=== PATIENT | female | born 1940 | race Caucasian/White ===

== ENCOUNTER 2019-07-12 15:25 | Outpatient (RCR) | payer MEDICARE, MEDICAID, SELFPAY | END 2019-07-27 00:01 | LOC: LAB 15:25 | PROVIDERS: Family Provider Family Medicine; Visit Provider Family Medicine | DX: G35 Multiple sclerosis (principal) | CPT/HCPCS: 85025; 86140 ==

== ENCOUNTER 2020-06-07 14:00 | Emergency (ER) | payer MEDICARE, MEDICAID, SELFPAY ==
--- NOTE | 2020-06-07 14:08 | ECG_ITS ---
[facility] Test Date: 2020-06-07 Pat Name: Elicia Davison Department: Room: Gender: Female Commercial Property Manager: : 1940 Requested By: Leonard Natarajan Order Number: [id number] Carlos MD: Manas Ocampo M.D. Measurements Intervals [place] Rate: 69 P: 65 WI: 222 QRS: 15 QRSD: 85 T: 58 QT: 430 QTc: 463 Interpretive Statements SINUS RHYTHM WITH FIRST DEGREE AV BLOCK Compared to ECG 12/03/2018 02:51:22 Sinus tachycardia no longer present Electronically Signed On 06-07-2020 16:07:21 MANAGER FINANCIAL REPORTING by Manas Ocampo M.D. [id number]
--- NOTE | 2020-06-07 14:12 | XR_ITS ---
WS: [id number] Portable AP upright chest, 06/07/2020 Clinical Data: covid Comparison: Portable chest, 12/27/2018. Findings: There is minimal patchy opacity in the left lower lobe. The upper lobes are clear as is the right low er lobe. The heart is normal. The aortic arch and descending aorta show calcified dictation and mild tortuosity. No nodules, masses or effusions are seen. There are monitor leads on the chest wall. XR/XR chest 1V portable [id number] IMPRESSION: 1. Minimal patchy opacity in left lower lobe which could represent acute pneumo darrell and/or atelectasis. 2. Atherosclerosis.
[2020-06-07 14:17] VITALS: BP 100/38; PULSE 64; RESP 16; TEMP 36.5; O2SAT 96; BMI 31.6
[2020-06-07] MEDS: sodium chloride 0.9% 1,000 ML 999 ML IV ×2 (14:20→15:37)
--- NOTE | 2020-06-07 14:20 | ED_ITS ---
HPI - Syncope General: Chief Complaint: COVID symptoms Stated Complaint: SYNCOPE Time Seen by Provider: 06/07/20 14:08 Source: patient Mode of arrival: ambulatory Limitations: physical limitation History of Present Illness: HPI narrative: 79-year-old female who tested positive for Covid 5 days ago. Per retirement she has had decreased oral intake and states she had a syncopal event this morning. Patient was hypotensive but blood pressure is better after 500 mL by EMS. She denies any shortness of breath. States she just felt weak over the last roughly 2 weeks. Denies any fevers. Denies any vomiting or diarrhea. Denies any worsening or improving factors. Associated symptoms: Deny abdominal pain, chest pain, fever(s), headache(s) or nausea Review of Systems Const: Denies: fever(s), chills, body aches or change in appetite Eyes: Denies: blurry vision or eye discomfort ENMT: Denies: throat pain or dental pain Card: Reports: syncope; Denies: chest pain Resp: Denies: dyspnea GI: Denies: abdominal pain, nausea, vomiting or diarrhea : Denies: dysuria Musc: Denies: neck pain or back pain Skin/Breast: Denies: rash Neuro: Denies: headache(s) Psych: Denies: depression Sam/Lymph: Denies: easy bruising All/Imm: Denies: urticaria Physical Exam Const: COMMON NORMALS: no acute distress, patient oriented x3 and healthy appearing HENMT: COMMON NORMALS: normocephalic and atraumatic HEAD & SCALP: normocephalic and atraumatic Eye: COMMON NORMALS: Equal, round and reactive pupils present and EOMs intact bilaterally PUPIL: Yes Equal, round and reactive pupils present Neck/C-Spine: COMMON NORMALS: full ROM and supple Chest: COMMONS NORMALS: normal inspection of the chest and normal palpation of entire chest wall Resp: COMMON NORMALS: normal respiratory effort, No retractions, No use of accessory muscles and clear to auscultation bilaterally AUSCULTATION: clear to auscultation bilaterally Cardio: COMMON NORMALS: regular rate, regular rhythm and No murmurs present (Cardio) RATE: regular rate RHYTHM: regular rhythm GI: COMMON NORMALS: Normal to inspection, nondistended, normoactive bowel sounds present, Soft to palpation, non-tender and no masses PALPATION: Yes Soft to palpation Extremity: COMMON NORMALS: normal to inspection and full ROM Neuro: COMMON NORMALS: patient oriented x3, moves all extremities and no focal motor deficits Psych: COMMON NORMALS: mental status grossly normal, Normal thought process present and cooperative THOUGHT PROCESS: Normal thought process present Skin: COMMON NORMALS: no rashes or lesions noted and no wounds GENERAL SKIN EXAM: no rashes or lesions noted Course Vital Signs: Vital signs: Vital Signs Temperature 97.7 F 06/07/20 14:17 Pulse Rate 67 06/07/20 16:56 Respiratory Rate 18 06/07/20 16:56 Blood Pressure 135/54 06/07/20 16:56 Pulse Oximetry 93 06/07/20 16:56 MDM - Syncope MDM Narrative: Medical decision making narrative: Patient presents here with general weakness along with Covid. X-ray shows a possible left lower lobe pneumonia and will start her on doxycycline. Patient is well-appearing here and vital signs are all normal. She has no dyspnea. We will give her Decadron and prescribe her meds for home and feels she is stable for discharge back to the retirement. She is to return if worsening. Lab Data: Labs: Lab Results 06/07/20 06/07/20 06/07/20 Range/Units 14:45 14:45 14:45 WBC 4.2 (4.0-10.0) 10^3/ uL RBC 3.32 L (4.1-5.3) 10^6/u L Hgb 10.9 L (11.5-15.3) g/dL Hct 35.3 L (37.0-47.0) % MCV 106.3 H (81-99) fL MCH 32.8 (28.0-34.0) pg MCHC 30.9 (30.0-36.0) g/dL RDW 13.8 (12.1-15.1) % Plt Count 260 (130-400) 10^3/c mm MPV 9.7 (7.4-10.4) fL Neut % (Auto) 63.2 % Lymph % (Auto) 26.7 % [place] % (Auto) 9.2 % Eos % (Auto) 0.2 % Baso % (Auto) 0.2 % Neut # (Auto) 2.62 (1.8-7.7) 10^3/u L Lymph # (Auto) 1.1 (0.8-4.8) 10^3/u L [place] # (Auto) 0.4 (0.2-0.9) 10^3/u L Eos # (Auto) 0.0 (0.0-0.8) 10^3/u L Baso # (Auto) 0.0 (0.0-0.1) 10^3/u L Nucleated RBC % (a uto) 0 % Nucleated RBCs # 0.0 /100WBC Sodium 137 (136-145) mmol/L Potassium 3.7 (3.5-5.1) mmol/L Chloride 101 (98-107) mmol/L Carbon Dioxide 26 (22-29) mmol/L Anion Gap 13.7 (5-19) BUN 12 (8-23) mg/dL Creatinine 0.9 (0.5-0.9) mg/dL GFR Calculation Not Reportable Glucose 139 H (65-115) mg/dL Calculated Osmolal ity 286 (285-295) mOsm/k g Lactate 2.6 H (0.5-2.2) mmol/L Calcium 8.8 (8.5-10.5) mg/dL Total Bilirubin 0.2 (0.15-1.2) mg/dL AST 15 (0-32) U/L ALT 7 (0-33) U/L Alkaline Phosphata se 138 H (35-105) IU/L Total Protein 6.9 (6.6-8.7) g/dL Albumin 3.1 L (3.5-5.2) g/dL Globulin 3.8 (1.3-4.6) g/dL Imaging Data^: CXR: Attestation: I personally reviewed and interpreted this imaging study as follows: Radiologist's impression: [address] [address] XRay Report Signed Patient: Elicia Davison Unit #: [id number] : 1940 Age/Sex: 79 / F ADM Date: 06/07/20 Loc: ER Room/Bed: Attending Dr: Ordering Provider/Ordering MD: Leonard Natarajan MD Date of Service: 06/07/20 Procedure(s): XR chest 1V portable [id number] Accession Number(s): [id number] Report Number: [id number] WS: [id number] Portable AP upright chest, 06/07/2020 Clinical Data: covid Comparison: Portable chest, 12/27/2018. Findings: There is minimal patchy opacity in the left lower lobe. The upper lobes are clear as is the right lower lobe. The heart is normal. The aortic arch and descending aorta show calcified dictation and mild tortuosity. No nodules, masses or effusions are seen. There are monitor leads on the chest wall. XR/XR chest 1V portable [id number] IMPRESSION: 1. Minimal patchy opacity in left lower lobe which could represent acute pn eumonia and/or atelectasis. 2. Atherosclerosis. EKG Data^: EKG 1: Attestation: I personally reviewed and interpreted this EKG as follows: EKG interpretation date: 06/07/20 EKG interpretation time: 15:16 Interpretation: nsr hr [address] or t wave abnormalities qrs 89 qtc 449 Discharge Plan Discharge Patient Disposition: Home Clinical Impression: Pneumonia due to 2019 novel coronavirus Condition: Stable Prescriptions: New doxycycline hyclate 100 mg capsule 100 mg PO BID 10 Days Qty: 20 RF: 0 No Action gabapentin 600 mg Tablet 600 mg PO QID RF: 0 tizanidine 2 mg Tablet 2 mg PO TID PRN (Reason: Muscle Spasm) RF: 0 aspirin 325 mg Tablet 325 mg PO DAILY RF: 0 pravastatin 40 mg Tablet 40 mg PO DAILY RF: 0 [place] 5-325 mg Tablet 1 tab PO Q4H PRN (Reason: Pain) RF: 0 [place] 5-325 mg Tablet 1 tab PO BID RF: 0 Senna-S 8.6-50 mg Tablet 1 tab PO BID RF: 0 calcium carbonate-vitamin D3 [Calcium 600 + D(3)] 600 mg(1,500mg) -200 unit Tablet 2 tab PO DAILY RF: 0 levothyroxine 75 mcg Tablet 75 mcg PO DAILY RF: 0 nortriptyline 25 mg Capsule 25 mg PO DAILY RF: 0 carbamazepine 200 mg Tablet Extended Release 12 Hr 400 mg PO BID RF: 0 baclofen 10 mg Tablet 10 mg PO TID RF: 0 metoprolol tartrate 50 mg Tablet 50 mg PO BID RF: 0 oxybutynin chloride 5 mg Tablet 5 mg PO BID RF: 0 Ocuvite Tablet 1 tab PO DAILY RF: 0 TwoCal HN 0.08-2 gram-kcal/mL Liquid 1 ea PO TID RF: 0 Betaseron 0.3 mg kit 0.25 mg SUBCUT .EVERY TWO DAYS RF: 0 Tylenol 325 mg Tablet 650 mg PO Q6H PRN (Reason: Pain) RF: 0 Miralax 17 gram Powder In Packet 17 g PO DAILY PRN (Reason: Constipation) RF: 0 loperamide 2 mg Tablet 2 mg PO Q8H PRN (Reason: LOOSE STOOLS) RF: 0 Xanax 0.5 mg Tablet 0.5 mg PO BID PRN (Reason: UNKNOWN) RF: 0 Xanax 0.25 mg Tablet 0.25 mg PO BID PRN (Reason: Anxiety) RF: 0 Milk of Magnesia 400 mg/5 mL Suspension 30 ml PO DAILY PRN (Reason: Constipation) RF: 0 bisacodyl 10 mg Suppository 10 mg OK DAILY PRN (Reason: Constipation) RF: 0 Vitamin B-12 1,000 mcg/mL Solution 1,000 mcg IM Q30D RF: 0 ibuprofen 400 mg Tablet 400 mg PO Q8H PRN (Reason: Pain) RF: 0 Enema Disposable 19-7 gram/118 mL Enema 118 ml OK DAILY PRN (Reason: Constipation) RF: 0 Biofreeze (menthol) 4 % Gel See Rx Instructions .ROUTE .COMPLEX RF: 0 Discharge Orders: Discharge Order (Routine); Ordered 06/07/20 Ordered By: Leonard Natarajan Discharge Diet: Advance as tolerated Discharge Activity: Resume usual activity Patient Instructions: Pneumonia (ED) Coding Level of Care Code ED Online Merchandising Specialist for Chg Fwd Exam Comprehensive
[2020-06-07 14:25] VITALS: BP 106/42; PULSE 68; RESP 16; O2SAT 97
[2020-06-07 14:49] VITALS: O2SAT 97
[2020-06-07 14:50] VITALS: BP 106/42; PULSE 70; RESP 16; O2SAT 97
[2020-06-07 15:06] LABS: Basophils % 0.2 %; Eosinophils % 0.2 %; Hematocrit 35.3 % (37.0-47.0); Hemoglobin 10.9 g/dL (11.5-15.3); Lymphocytes # 1.1 10^3/uL (0.8-4.8); Lymphocytes % 26.7 %; Mean Corpuscular HGB Conc 30.9 g/dL (30.0-36.0); Mean Corpuscular Hemoglobin 32.8 pg (28.0-34.0); Mean Corpuscular Volume 106.3 fL (81-99); Mean Platelet Volume 9.7 fL (7.4-10.4); Monocytes # 0.4 10^3/uL (0.2-0.9); Monocytes % 9.2 %; Neutrophils # 2.62 10^3/uL (1.8-7.7); Neutrophils % 63.2 %; Nucleated Red Blood Cells % 0 %; Platelet Count 260 10^3/cmm (130-400); Red Blood Count 3.32 10^6/uL (4.1-5.3); Red Cell Distribution Width 13.8 % (12.1-15.1); White Blood Count 4.2 10^3/uL (4.0-10.0)
[2020-06-07 15:50] LABS: Lactate (Lactic Acid level) 2.6 mmol/L (0.5-2.2)
[2020-06-07 15:51] LABS: Alanine Aminotransferase 7 U/L (0-33); Albumin Level 3.1 g/dL (3.5-5.2); Alkaline Phosphatase 138 IU/L (35-105); Anion Gap 13.7 (5-19); Aspartate Amino Transferase 15 U/L (0-32); Blood Urea Nitrogen 12 mg/dL (8-23); Calcium 8.8 mg/dL (8.5-10.5); Carbon Dioxide 26 mmol/L (22-29); Chloride 101 mmol/L (98-107); Creatinine Clr Calc Pharmacy 56.7508; Globulin 3.8 g/dL (1.3-4.6); Glucose 139 mg/dL (65-115); Osmolality Calculated 286 mOsm/kg (285-295); Potassium 3.7 mmol/L (3.5-5.1); Sodium 137 mmol/L (136-145); Total Bilirubin 0.2 mg/dL (0.15-1.2); Total Protein 6.9 g/dL (6.6-8.7)
--- NOTE | 2020-06-07 16:04 | PC.NURSE ---
Resting with lights off. Informed her, her daughter in law checking on her.
[2020-06-07] MEDS: dexamethasone 4 mg/mL INJ 10 MG IVP (16:28)
[2020-06-07 16:56] VITALS: BP 135/54; PULSE 67; RESP 18; O2SAT 93
[2020-06-07 18:03] VITALS: BP 115/54; PULSE 67; RESP 16; TEMP 37.2; O2SAT 96
== END 2020-06-07 18:18 | disposition home or self-care (01) ==
PROVIDERS: Emergency Provider Emergency Medicine
DX: U07.1 COVID-19 (principal); J12.89 Other viral pneumonia; Z79.82 Long term (current) use of aspirin
CPT/HCPCS: 12345; 71045; 80053; 83605; 85025; 93005; 96361; 96374; 96375; 99283; J1100; J7030

== ENCOUNTER 2020-06-20 12:49 | Emergency (ER) | payer MEDICARE, MEDICAID, SELFPAY ==
[2020-06-20 12:55] VITALS: BP 116/55; PULSE 64; RESP 18; TEMP 36.4; O2SAT 100; BMI 26.9
--- NOTE | 2020-06-20 12:57 | XR_ITS ---
WS: [id number] XR chest 1V portable [id number] REASON FOR EXAM: syncope FINDINGS: The chest is unchanged compared to 06/07/2020. The heart and mediastinum are within normal limits for age. There are interstitial changes in both lungs which are identifiable on the previous examination. They appear somewhat more accentuated and prominent on this examination however this is likely due to dif ference in technique. No other interval change or new finding. XR/XR chest 1V portable [id number] IMPRESSION: Probable stable abnormal chest. Less likely early congestive failure. Clinical correlation to be made.
--- NOTE | 2020-06-20 13:06 | CT_ITS ---
WS: [id number] CT head wo con* [id number] REASON FOR EXAM: weakness, HOLMAN IV CONTRAST ADMINISTERED: Noncontrast. TOTAL EXAM DLP: 888.[address] scans at [facility] use at least one of these dose optimization techniques: automat ed exposure control; mA and/or kV adjustment per patient size (includes targeted exams where dose is matched to clinical indication); or iterative reconstruction. FINDINGS: Compared to the previous examination of 12/27/2018 there has been no significant interval change. The bony calvarium is intact. Heavily calcified interhemispheric dura. No midline shift or other significant mass effect. No findings of intracranial hemorrhage and no extra-axial fluid collection. There is symmetric global atrophy. There is symmetric low-attenuation in the periventricular white ma tter compatible with small vessel chronic ischemic demyelination. No focal brain parenchymal lesion. Incidentally noted is mucosal thickening in the ethmoid sinuses. CT/CT head wo con* [id number] IMPRESSION: No acute intracranial abnormality.
--- NOTE | 2020-06-20 13:06 | CT_ITS ---
WS: [id number] CT cervical spin wo con* [id number] REASON FOR EXAM: posterior neck pain, BUE weakness IV CONTRAST ADMINISTERED: Noncontrast TOTAL EXAM DLP: 489.[address] scans at [facility] use at least one of these dose optimization techniques: automat ed exposure control; mA and/or kV adjustment per patient size (includes targeted exams where dose is matched to clinical indication); or iterative reconstruction. FINDINGS: Mild reversal of the normal lordosis of the cervical spine from C4 to C7. No vertebral body compression deformity. Normal odontoid. Normal atlantoaxial articulations. Degenerative arthropathy in the odontoid C1 articulation. Severe narrowing of the intervertebral disc spaces at C4-C5 C5-C6 and C6-C7. Moderate anterior spurri ng through this same segment of the cervical spine. Degenerative cystic changes in the endplates of t he vertebral bodies C2-C7. Normal facet alignment. No cord or nerve root impingement is identified. CT/CT cervical spin wo con* [id number] IMPRESSION: No fracture or other acute abnormality. Degenerative spondylosis C4-C7 as above.
[2020-06-20 13:19] LABS: Basophils % 0.4 %; Eosinophils # 0.1 10^3/uL (0.0-0.8); Eosinophils % 2.2 %; Hematocrit 30.8 % (37.0-47.0); Hemoglobin 9.7 g/dL (11.5-15.3); Lymphocytes # 1.2 10^3/uL (0.8-4.8); Lymphocytes % 22.3 %; Mean Corpuscular HGB Conc 31.5 g/dL (30.0-36.0); Mean Corpuscular Hemoglobin 32.9 pg (28.0-34.0); Mean Corpuscular Volume 104.4 fL (81-99); Monocytes # 0.5 10^3/uL (0.2-0.9); Monocytes % 9.1 %; Neutrophils % 65.6 %; Nucleated Red Blood Cells % 0 %; Platelet Count 284 10^3/cmm (130-400); Red Blood Count 2.95 10^6/uL (4.1-5.3); Red Cell Distribution Width 14.6 % (12.1-15.1); White Blood Count 5.5 10^3/uL (4.0-10.0)
[2020-06-20 13:37] LABS: Alanine Aminotransferase 7 U/L (0-33); Albumin Level 2.9 g/dL (3.5-5.2); Alkaline Phosphatase 155 IU/L (35-105); Anion Gap 11.1 (5-19); Aspartate Amino Transferase 12 U/L (0-32); Blood Urea Nitrogen 17 mg/dL (8-23); Calcium 8.1 mg/dL (8.5-10.5); Carbon Dioxide 28 mmol/L (22-29); Chloride 103 mmol/L (98-107); Creatinine Clr Calc Pharmacy 59.1214; Globulin 3.2 g/dL (1.3-4.6); Glucose 104 mg/dL (65-115); Magnesium 2.2 mg/dL (1.7-2.3); Osmolality Calculated 288 mOsm/kg (285-295); Potassium 4.1 mmol/L (3.5-5.1); Sodium 138 mmol/L (136-145); Total Bilirubin 0.2 mg/dL (0.15-1.2); Total Protein 6.1 g/dL (6.6-8.7)
[2020-06-20 13:47] VITALS: BP 92/47; PULSE 65; RESP 12; O2SAT 100
[2020-06-20] MEDS: sodium chloride 0.9% 500 ML 999 ML IV (14:01)
--- NOTE | 2020-06-20 14:32 | ED_ITS ---
HPI - Neuro Symptoms/Deficit General: Chief Complaint: Neuro Symptoms/Deficit Stated Complaint: TREMORS POST COVID Time Seen by Provider: 06/20/20 12:54 Source: patient and EMS Mode of arrival: EMS Limitations: altered mental status and physical limitation History of Present Illness: HPI Narrative: Pleasant 79-year-old female patient presents to the emergency department via notes/EMS due to bilateral upper extremity weakness. prison staff reports she continues to drop her fork and is experiencing weakness. Recent COVID-19 illness. Tested + 06/02/2020, [facility] became concerned due to weakness. Patient states she does feel weak, denies fever chills or other symptoms. She has multiple sclerosis and is currently on interferon. ` Spoke with nursing facility, they state patient experienced hypotensive episode earlier today, blood pressure was 70/38, 1 L of nasal saline was administered prior to transport to the hospital. Nursing staff reports since COVID-19 illness, patient has continued a decline, has experienced episodes of confusion and weakness. They deny concern with stroke symptoms. They report weakness and hypotension was reason for transport. prison states she received Xanax and muscle relaxer prior to onset of hypotension. Onset (ago): day(s) (2-3) Timing confirmed by: caregiver Location: speech (Slurred) and right arm History of same: No Severity: moderate Quality: weak Relieving factors: rest Context: gradual onset On Anticoagulants: Yes (Aspirin) Associated symptoms: Reports malaise and weakness; Deny chest pain, diaphoresis, fevers/chills, headache(s), anorexia, nausea, short of breath or vomiting Treatments Prior to Arrival: Aspirin Review of Systems General: Reports: 10 or more systems reviewed and unremarkable except in HPI and below Const: Reports: fatigue and malaise; Denies: fever(s), chills or diaphoresis Eyes: Denies: blurry vision or eye redness ENMT: Denies: throat pain, dental pain or disequilibrium Card: Denies: chest pain, palpitations or irregular heart rhythm Resp: Denies: dyspnea, productive cough, non-productive cough or wheezing GI: Denies: abdominal pain, nausea or vomiting : Denies: difficulty voiding or dysuria Musc: Reports: neck pain and muscle weakness (Bilateral upper extremities); Denies: back pain Skin/Breast: Denies: rash or pruritus Neuro: Denies: headache(s), weakness in extremities or behavioral changes Psych: Denies: anxiety or depression Sam/Lymph: Denies: easy bruising Physical Exam Const: COMMON NORMALS: no acute distress, patient oriented x3 and alert GENERAL APPEARANCE: cooperative, comfortable and frail appearing NUTRITIONAL APPEARANCE: overweight ORIENTATION/CONSCIOUSNESS: Yes awake, Yes oriented to person, Yes oriented to place and Yes oriented to time HENMT: COMMON NORMALS: normocephalic, atraumatic, EAC's normal, Normal external nose present, Normal nasal mucous membranes and turbinates present and moist oral mucous membranes HEAD & SCALP: normocephalic and atraumatic FACE & SINUS: normal facial exam and face symmetric; no edema NOSE: Normal external nose present and Normal nasal mucous membranes and turbinates present; no Nasal discharge present and no Epistaxis present EXTERNAL AUDITORY CANAL: EAC's normal MOUTH: moist mucous membranes abnormal (dry) Eye: COMMON NORMALS: Equal, round and reactive pupils present and EOMs intact bilaterally GENERAL EYE: appearance normal, both eyes and all related structures PUPIL: Yes Equal, round and reactive pupils present Neck/C-Spine: COMMON NORMALS: full ROM and no lymphadenopathy GENERAL: Yes normal visual inspection and Yes trachea midline CERVICAL SPINE: Yes pain with cervical ROM, Yes Cervical spine tenderness C2, C3, C4 and C5, Yes Paracervical muscle tenderness, No Paracervical spasm and No Trapezius muscle tenderness Lymph: LYMPHATIC: no lymphadenopathy noted Chest: COMMONS NORMALS: normal inspection of the chest and normal palpation of entire chest wall CHEST: No localized rib tenderness with anteroposterior compression Resp: COMMON NORMALS: normal respiratory effort and clear to auscultation bilaterally EFFORT & INSPECTION: Yes able to speak in complete sentences and No paradoxical thoraco-abdominal movements AUSCULTATION: clear to auscultation bilaterally and diminished lung sounds bilateral in the lower lung stein Cardio: COMMON NORMALS: regular rhythm, S1 normal heart sound present, S2 normal heart sound present and Peripheral pulses 2+ throughout RHYTHM: regu lar rhythm HEART SOUNDS: S1 normal heart sound present and S2 normal heart sound present PERIPHERAL PULSES: Peripheral pulses 2+ throughout GI: COMMON NORMALS: Normal to inspection, nondistended, normoactive bowel sounds present, Soft to palpation and non-tender INSPECTION: Yes normal to inspection PALPATION: Yes Soft to palpation, No Abdominal wall crepitus prese nt and No Rebound tenderness present : COMMON NORMALS: Yes no CVA tenderness BLADDER/KIDNEY EXAM: Yes no CVA tenderness Back/Pelvis: COMMON NORMALS: no CVA tenderness and thoracic and lumbar spine normal to inspection Extremity: COMMON NORMALS: normal to inspection and capillary refill normal Neuro: TOÑO COMA SCALE: document GCS findings Toño coma scale eye opening: Spontaneous [place] coma scale verbal response: Orientated To[place] coma scale motor response: Obey commands [place] coma scale total score: 15 COMMON NORMALS: patient oriented x3 and no focal motor deficits SENSORIUM/ORIENTATION: Yes alert, Yes oriented to person, Yes oriented to place and Yes oriented to time SPEECH: speech normal MOTOR EXAM: Abnormal motor strength present (generalized weakness, BLE weakness present, hand grasp 3/5 BUE) Psych: COMMON NORMALS: mental status grossly normal, Normal thought process present and cooperative ACTIVITY/MOTOR BEHAVIOR: Yes appropriate eye contact THOUGHT PROCESS: Normal thought process present Skin: COMMON NORMALS: no rashes or lesions noted and turgor normal GENERAL SKIN EXAM: no rashes or lesions noted and turgor normal Course ED course: 79-year-old female patient presents to the emergency department with generalized weakness and hypotension. Cardiac work-up without acute abnormality, CT of the head and neck without acute process. She currently receives Keflex for treatment of urinary tract infection. prison reports she requires Xanax due to anxiety, muscle relaxers due to pain, advised [facility] staff to dose medication that can cause hypotension at longer intervals. 1 L of normal saline infused prior to arrival, patient received additional 500 cc here in the ED. Blood pressure normalized, lowest blood pressure reading was 92/47, decreased hemoglobin noted, chronically anemic, remains on iron. Suggest repeat CBC next week to ensure hemoglobin stabilized. She is advised to follow- up with primary care physician in a week. Suggest physical therapy to assist patient with strengthening exercises. Vital Signs: Vital signs: Vital Signs Temperature 97.6 F 06/20/20 12:55 Pulse Rate 64 06/20/20 15:36 Respiratory Rate 12 06/20/20 15:36 Blood Pressure 118/57 06/20/20 15:36 Pulse Oximetry 99 06/20/20 15:36 MDM - Neuro Symptoms/Deficit Lab Data: Labs: Lab Results 06/20/20 06/20/20 06/20/20 Range/Units 13:10 13:10 13:10 WBC 5.5 (4.0-10.0) 10^3/ uL RBC 2.95 L (4.1-5.3) 10^6/u L Hgb 9.7 L (11.5-15.3) g/dL Hct 30.8 L (37.0-47.0) % MCV 104.4 H (81-99) fL MCH 32.9 (28.0-34.0) pg MCHC 31.5 (30.0-36.0) g/dL RDW 14.6 (12.1-15.1) % Plt Count 284 (130-400) 10^3/c mm MPV 10.0 (7.4-10.4) fL Neut % (Auto) 65.6 % Lymph % (Auto) 22.3 % Hyde % (Auto) 9.1 % Eos % (Auto) 2.2 % Baso % (Auto) 0.4 % Neut # (Auto) 3.60 (1.8-7.7) 10^3/u L Lymph # (Auto) 1.2 (0.8-4.8) 10^3/u L Hyde # (Auto) 0.5 (0.2-0.9) 10^3/u L Eos # (Auto) 0.1 (0.0-0.8) 10^3/u L Baso # (Auto) 0.0 (0.0-0.1) 10^3/u L Nucleated RBC % (a uto) 0 % Nucleated RBCs # 0.0 /100WBC Sodium 138 (136-145) mmol/L Potassium 4.1 (3.5-5.1) mmol/L Chloride 103 (98-107) mmol/L Carbon Dioxide 28 (22-29) mmol/L Anion Gap 11.1 (5-19) BUN 17 (8-23) mg/dL Creatinine 0.8 (0.5-0.9) mg/dL GFR Calculation Not Reportable Glucose 104 (65-115) mg/dL Calculated Osmolal ity 288 (285-295) mOsm/k g Lactate (0.5-2.2) mmol/L Calcium 8.1 L (8.5-10.5) mg/dL Magnesium 2.2 (1.7-2.3) mg/dL Total Bilirubin 0.2 (0.15-1.2) mg/dL AST 12 (0-32) U/L ALT 7 (0-33) U/L Alkaline Phosphata se 155 H (35-105) IU/L Troponin T Baselin e 15 H (0-10) ng/L Troponin T 120 Min [place] (0-10) ng/L Delta Troponin T (0-10) ABS# Total Protein 6.1 L (6.6-8.7) g/dL Albumin 2.9 L (3.5-5.2) g/dL Globulin 3.2 (1.3-4.6) g/dL Urine Color (Yellow) Urine Appearance (CLEAR) Urine pH (5-7) Ur Specific Gravit y (1.005-1.030) Urine Protein (Negative) Urine Glucose (UA) (Normal) Urine Ketones (Negative) Urine Blood (Negative) Urine Nitrate (Negative) Urine Bilirubin (Negative) Urine Urobilinogen (Negative) mg/dL Ur Leukocyte Bree ase (Negative) Urine RBC (0-2) /hpf Urine WBC (0-5) /hpf Ur Squamous Epith Cells (0-5) /hpf Amorphous Sediment Urine Bacteria (NONE) /hpf 06/20/20 06/20/20 06/20/20 Range/Units 15:07 15:14 15:14 WBC (4.0-10.0) 10^3/ uL RBC (4.1-5.3) 10^6/u L Hgb (11.5-15.3) g/dL Hct (37.0-47.0) % MCV (81-99) fL MCH (28.0-34.0) pg MCHC (30.0-36.0) g/dL RDW (12.1-15.1) % Plt Count (130-400) 10^3/c mm MPV (7.4-10.4) fL Neut % (Auto) % Lymph % (Auto) % Hyde % (Auto) % Eos % (Auto) % Baso % (Auto) % Neut # (Auto) (1.8-7.7) 10^3/u L Lymph # (Auto) (0.8-4.8) 10^3/u L Hyde # (Auto) (0.2-0.9) 10^3/u L Eos # (Auto) (0.0-0.8) 10^3/u L Baso # (Auto) (0.0-0.1) 10^3/u L Nucleated RBC % (a uto) % Nucleated RBCs # /100WBC Sodium (136-145) mmol/L Potassium (3.5-5.1) mmol/L Chloride (98-107) mmol/L Carbon Dioxide (22-29) mmol/L Anion Gap (5-19) BUN (8-23) mg/dL Creatinine (0.5-0.9) mg/dL GFR Calculation Glucose (65-115) mg/dL Calculated Osmolal ity (285-295) mOsm/k g Lactate 1.1 (0.5-2.2) mmol/L Calcium (8.5-10.5) mg/dL Magnesium (1.7-2.3) mg/dL Total Bilirubin (0.15-1.2) mg/dL AST (0-32) U/L ALT (0-33) U/L Alkaline Phosphata se (35-105) IU/L Troponin T Baselin e (0-10) ng/L Troponin T 120 Min [place] 10.92 H (0-10) ng/L Delta Troponin T -4.08 L (0-10) ABS# Total Protein (6.6-8.7) g/dL Albumin (3.5-5.2) g/dL Globulin (1.3-4.6) g/dL Urine Color Yellow (Yellow) Urine Appearance Clear (CLEAR) Urine pH 7 (5-7) Ur Specific Gravit y 1.005 (1.005-1.030) Urine Protein Neg (Negative) Urine Glucose (UA) Norm (Normal) Urine Ketones Negative (Negative) Urine Blood Neg (Negative) Urine Nitrate Negative (Negative) Urine Bilirubin Neg (Negative) Urine Urobilinogen Norm (Negative) mg/dL Ur Leukocyte Bree ase Trace H (Negative) Urine RBC None (0-2) /hpf Urine WBC 15-25 H (0-5) /hpf Ur Squamous Epith Cells 0-4 H (0-5) /hpf Amorphous Sediment Not Reportable Urine Bacteria Trace (NONE) /hpf Imaging Data^: CXR: Radiologist's impression: [address] [address] XRay Report Signed Patient: Elicia Davsion Unit #: [id number] : 1940 Age/Sex: 79 / F ADM Date: 06/20/20 Loc: ER Room/Bed: Attending Dr: Ordering Provider/Ordering MD: Naomi Perla Date of Service: 06/20/20 Procedure(s): XR chest 1V portable [id number] Accession Number(s): [id number] Report Number: [id number] WS: [id number] XR chest 1V portable [id number] REASON FOR EXAM: syncope FINDINGS: The chest is unchanged compared to 06/07/2020. The heart and mediastinum are within normal limits for age. There are interstitial changes in both lungs which are identifiable on the previous examination. They appear somewhat more accentuated and prominent on this examination however this is likely due to difference in technique. No other interval change or new finding. XR/XR chest 1V portable [id number] IMPRESSION: Probable stable abnormal chest. Less likely early congestive failure. Clinical correlation to be made. Dictated By: Don Shah Jr, MD Signed By: Don Shah Jr, MD Signed Date/Time: 06/20/20 1402 DD/ 1353 Other Xray: Radiologist's impression: [address] [address] [address] Scan Report Signed Patient: Elicia Davison Unit #: [id number] : 1940 Age/Sex: 79 / F ADM Date: 06/20/20 Loc: ER Room/Bed: Attending Dr: Ordering Provider/Ordering MD: Naomi Perla Date of Service: 06/20/20 Procedure(s): CT cervical spin wo con* [id number] Accession Number(s): [id number] Report Number: [id number] WS: [id number] CT cervical spin wo con* [id number] REASON FOR EXAM: posterior neck pain, BUE weakness IV CONTRAST ADMINISTERED: Noncontrast TOTAL EXAM DLP: 489.[address] scans at [facility] use at least one of these dose optimization techniques: automated exposure control; mA and/or kV adjustment per patient size (includes targeted exams where dose is matched to clinical indication); or iterative reconstruction. FINDINGS: Mild reversal of the normal lordosis of the cervical spine from C4 to C7. No vertebral body compression deformity. Normal odontoid. Normal atlantoaxial articulations. Degenerative arthropathy in the odontoid C1 articulation. Severe narrowing of the intervertebral disc spaces at C4-C5 C5-C6 and C6-C7. Moderate anterior spurring through this same segment of the cervical spine. Degenerative cystic changes in the endpla niles of the vertebral bodies C2-C7. Normal facet alignment. No cord or nerve root impingement is identified. CT/CT cervical spin wo con* [id number] IMPRESSION: No fracture or other acute abnormality. Degenerative spondylosis C4-C7 as above. Other Imaging: Radiologist's impression: [address] [place] [address] CT Scan Report Signed Patient: Elicia Davison Unit #: [id number] : 1940 Age/Sex: 79 / F ADM Date: 06/20/20 Loc: ER Room/Bed: Attending Dr: Ordering Provider/Ordering MD: Naomi Perla Date of Service: 06/20/20 Procedure(s): CT head wo con* [id number] Accession Number(s): [id number] Report Number: [id number] WS: [id number] CT head wo con* [id number] REASON FOR EXAM: weakness, HOLMAN IV CONTRAST ADMINISTERED: Noncontrast. TOTAL EXAM DLP: 888.[address] scans at [facility] use at least one of these dose optimization techniques: automated exposure control; mA and/or kV adjustment per patient size (includes targeted exams where dose is matched to clinical indication); or iterative reconstruction. FINDINGS: Compared to the previous examination of 12/27/2018 there has been no significant interval change. The bony calvarium is intact. Heavily calcified interhemispheric dura. No midline shift or other significant mass effect. No findings of intracranial hemorrhage and no extra-axial fluid collection. There is symmetric global atrophy. There is symmetric low-attenuation in the periventricular white matter compatible with small vessel chronic ischemic demyelination. No focal brain parenchymal lesion. Incidentally noted is mucosal thickening in the ethmoid sinuses. CT/CT head wo con* [id number] IMPRESSION: No acute intracranial abnormality. EKG Data^: EKG 1: EKG interpretation date: 06/20/20 EKG 2: EKG interpretation date: 06/20/20 EKG interpretation time: 14:51 Other EKG comments: Sinus rhythm with first-degree AV block, ventricular rate 64 Discharge Plan Discharge Patient Disposition: [facility] Clinical Impression: Generalized muscle weakness, Acute UTI Hypotension Qualifiers: Hypotension type: hypotension due to hypovolemia Qualified Code(s): I95.89 - Other hypotension Anemia Qualifiers: Anemia type: iron deficiency Iron deficiency anemia type: unspecified iron deficiency Qualified Code(s): D50.9 - Iron deficiency anemia, unspecified Condition: Stable Discharge Diet: Usual diet Discharge Activity: Resume usual activity Patient Instructions: Urinary Tract Infection in Women (ED), Hypotension (ED), Weakness (ED), Anemia (ED) Activity Restrictions/Additional Instructions: Continue antibiotics for urinary tract infection until all gone Monitor blood pressure frequently, consider dosing muscle relaxer and pain medication/Xanax at longer intervals to reduce risk of hypotension Suggest repeat of CBC next week to ensure anemia is stabilized Follow-up with the primary care provider next week for hypotension/emergency room visit Return to the emergency department if you develop hypotension, low oxygen level or development of chest pains or shortness of breath. PT to evaluate and treat weakness Coding Level of Care Code ED Driver License Examiner for Chg Fwd Exam Comprehensive
--- NOTE | 2020-06-20 14:34 | ECG_ITS ---
[facility] Test Date: 2020-06-20 Pat Name: Elicia Davison Department: Room: Gender: Female Community Health Nurse Supervisor: : 1940 Requested By: Naomi Dennis Order Number: [id number] Reading MD: RAMU BERRIOS Measurements Intervals [place] Rate: 64 P: 46 AK: 216 QRS: 20 QRSD: 83 T: 66 QT: 434 QTc: 449 Interpretive Statements SINUS RHYTHM WITH FIRST DEGREE AV BLOCK Compared to ECG 06/07/2020 15:16:47 No significant changes Electronically Signed On 06-22-2020 15:26:15 AUTO COLLISION REPAIR INSTRUCTOR by RAMU BERRIOS [email or web address]
[2020-06-20 15:18] LABS: Troponin(5th) Baseline 15 ng/L (0-10)
[2020-06-20 15:22] LABS: Add Urine Microscopic? YES; Bilirubin Urine Neg (Negative); Blood Urine Neg (Negative); Glucose Urine UA Norm (Normal); Ketones Urine Negative (Negative); Leukocyte Esterase Urine Trace (Negative); Nitrate Urine Negative (Negative); Protein Urine Neg (Negative); Specific Gravity, Urine 1.005 (1.005-1.030); Urine Appearance Clear (CLEAR); Urine Color Yellow (Yellow); Urobilinogen Urine Norm (Negative); pH Urine 7 (5-7)
[2020-06-20 15:28] LABS: Bacteria Urine TRACE /hpf; Squamous Epithelial Cell Urine 0-4 /hpf (0-5); WBC Urine 15-25 /hpf (0-5)
[2020-06-20 15:29] LABS: Add Urine Culture? No
[2020-06-20 15:36] VITALS: BP 118/57; PULSE 64; RESP 12; O2SAT 99
[2020-06-20 15:43] LABS: Lactate (Lactic Acid level) 1.1 mmol/L (0.5-2.2)
--- NOTE | 2020-06-20 15:43 | PC.NURSE ---
PO challenge complete. Pt a/ox4, no slurred speech noted, pt sts I feel much better and is smiling. Jorge Perla POCKETED SPRING MACHINE OPERATOR notified.
[2020-06-20 15:46] LABS: Troponin 5 2HR 10.92 ng/L (0-10)
[2020-06-20 15:51] LABS: Troponin 5 2HR Delta -4.08 ABS# (0-10)
[2020-06-20] MEDS: acetaminophen 325 mg Tablet 650 MG PO (16:29)
[2020-06-20 17:17] VITALS: BP 108/66; PULSE 66; RESP 19; O2SAT 90
[2020-06-20 18:18] VITALS: BP 161/68; PULSE 74; RESP 20; O2SAT 100
== END 2020-06-20 18:19 ==
PROVIDERS: Emergency Provider Nurse Practitioner Family
DX: R53.1 Weakness (principal); N39.0 Urinary tract infection, site not specified; I95.89 Other hypotension; D50.9 Iron deficiency anemia, unspecified
CPT/HCPCS: 12345; 70450; 71045; 72125; 80053; 81001; 83605; 83735; 84484; 85025; 93005; 99282; 99283; J7040